=== PATIENT | male | born 1985 | race Caucasian/White ===

== ENCOUNTER 2025-08-25 08:37 | Emergency (ER) | payer OTHER ==
[2025-08-25] MEDS ORDERED: Ketorolac 15 MG/ML SDV IVPUSH ONE (08:59)
[2025-08-25 09:25] LABS: BASOPHILS ABSOLUTE AUTO 0.0 K/mm3 (0.0-0.2); BASOPHILS PERCENT AUTO 0.4 % (0.0-1.0); EOSINOPHILS ABSOLUTE AUTO 0.2 K/mm3 (0.0-0.4); EOSINOPHILS PERCENT AUTO 2.7 % (0.0-6.0); IMMATURE GRAN ABSOLUTE AUTO 0.03 K/mm3 (0.00-0.05); IMMATURE GRAN PERCENT AUTO 0.4 % (0.0-0.4); LYMPHOCYTES ABSOLUTE AUTO 2.1 K/mm3 (1.0-4.8); LYMPHOCYTES PERCENT AUTO 30.4 % (24.0-44.0); MEAN PLATELET VOLUME 11.1 fl (9.4-12.4); MONOCYTES ABSOLUTE AUTO 0.5 K/mm3 (0.0-0.8); MONOCYTES PERCENT AUTO 7.2 % (0.0-8.0); NEUTROPHILS ABSOLUTE AUTO 4.0 K/mm3 (1.8-7.7); NEUTROPHILS PERCENT AUTO 58.9 % (41.0-71.0); NRBC ABSOLUTE 0.00 (0.00-0.02); NRBC PERCENT 0.0 % (0.0-0.2); PLATELET COUNT,PLT 195 K/mm3 (150-400); RED BLOOD CELL COUNT 4.98 M/mm3 (4.52-5.90); WHITE BLOOD CELL COUNT,WBC 6.78 K/mm3 (3.9-11.3)
[2025-08-25 09:36] LABS: A/G RATIO 1.2 (1-2); ALANINE AMINOTRANSFERASE,ALT 39.0 U/L (16-63); BILIRUBIN TOTAL 0.5 mg/dL (0.2-1.0); BLOOD UREA NITROGEN,BUN 17.0 mg/dL (7-18); CARBON DIOXIDE,CO2 29.0 mEq/L (21-32); CHLORIDE,CL 104.0 mEq/L (98-107); CREATININE 1.1 mg/dL (0.7-1.3); EST CRCL DRUG DOSING (CG) 93.09 mL/min; ESTIMATED GFR 88.0 mL/min (>60); GLUCOSE RANDOM 73.0 mg/dL (70-99); PROTEIN TOTAL,TP 7.5 g/dl (6.4-8.2); SODIUM,NA 140.0 mEq/L (136-145); TROPONIN I HIGH SENSITIVITY 4.0 pg/mL (<=76)
[2025-08-25 09:37] LABS: ASPARTATE AMNIOTRANSFERASE,AST 26.0 U/L (15-37); POTASSIUM,K 4.7 mEq/L (3.5-5.1)
[2025-08-25] MEDS: Iopamidol 755 Mg/ML 100 ML Bottle IVPUSH ONE (09:40)
[2025-08-25] MEDS: Sodium Chloride 0.9% 10 ML Syringe FLUSH PRN (09:40)
[2025-08-25] MEDS: Ketorolac 15 MG/ML SDV IVPUSH ONE (09:45)
== END 2025-08-25 13:32 | disposition home or self-care (01) ==
LOC: JD.ED 08:37
DX: R07.9 Chest pain, unspecified (principal); M25.512 Pain in left shoulder
CPT/HCPCS: 36415; 71275; 73030; 80053; 83690; 84484; 85025; 93005; 96361; 96374; 99285; J1885; J7030; Q9967; 93010; 99284